=== PATIENT | female | born 1975 | race Caucasian/White ===

== ENCOUNTER 2016-07-02 09:45 | Emergency (ER) | payer OTHER ==
[~2016-07-02] VITALS: Ht 162.6 cm; Wt 59.0 kg
[2016-07-02 10:15] LABS: KETONES,URINE Trace (NEGATIVE); LEUKOCYTE ESTERASE ,URINE Small (NEGATIVE); PH,URINE 5.5 (5.0-8.0)
[2016-07-02 10:16] LABS: ADD UA MICROSCOPIC YES
[2016-07-02 10:46] LABS: ADD URINE CULTURE YES; MUCUS,URINE Moderate /LPF (None Seen)
[2016-07-02] MEDS ORDERED: IBUPROFEN 600 MG TABLET PO ONE ×2 (11:00→11:08)
[2016-07-02 13:24] VITALS: BP 131/72
== END 2016-07-02 13:25 | disposition home or self-care (01) ==
LOC: ER 09:46
DX: N23 Unspecified renal colic (principal); N13.30 Unspecified hydronephrosis; R31.29 Other microscopic hematuria; N39.0 Urinary tract infection, site not specified; Z87.442 Personal history of urinary calculi
CPT/HCPCS: 74176; 76770; 81001; 84703; 87086; 99285; A4606; Z7610; 81000-TC